=== PATIENT | female | born 1975 | race Caucasian/White ===

== ENCOUNTER 2017-07-30 06:14 | Day surgery (SDC) | payer BC ==
[2017-07-30] MEDS: BUPIVACAINE 0.25% (MPF) 30 ML INJ
[2017-07-30] MEDS: SODIUM CHLORIDE 0.9% 1L BAG IV
[2017-07-30] MEDS ORDERED: ONDANSETRON 4 MG INJ (07:00)
[2017-07-30] MEDS ORDERED: SUCCINYLCHOLINE CHLORIDE 100 MG/5 ML SYG IV (07:00)
[2017-07-30] MEDS ORDERED: SOD CHLORIDE 0.9% 1,000 ML IV (07:00)
[2017-07-30] MEDS ORDERED: CEFAZOLIN 2 GM/50 ML (PMX) 50 ML IVPB (07:00)
[2017-07-30] MEDS ORDERED: CLINDAMYCIN 900 MG/50 ML D5W IVPB IVPB (07:00)
[2017-07-30] MEDS ORDERED: ROCURONIUM 50 MG INJ (07:00)
[2017-07-30] MEDS ORDERED: DEXAMETHASONE 4 MG/ML 1 ML INJ (07:00)
[2017-07-30] MEDS ORDERED: FENTAnyl 50 MCG/ML VIAL (08:16)
[2017-07-30] MEDS ORDERED: MIDAZOLAM 1 MG/ML 2 ML INJ (08:16)
[2017-07-30] MEDS ORDERED: METOCLOPRAMIDE 10 MG INJ (08:17)
[2017-07-30 08:20] LABS: ADD MAN DIFF? NO
[2017-07-30] MEDS ORDERED: PROPOFOL 20 ML (08:20)
[2017-07-30] MEDS ORDERED: LIDOCAINE 100 MG SYRINGE (08:20)
[2017-07-30] MEDS ORDERED: CEFAZOLIN 1 GM INJ (08:20)
[2017-07-30 08:27] LABS: BASOPHIL # 0.1 10^3/ul (0.0-0.1); BASOPHILS % 0.8 % (0.0-2.0); EOSINOPHILS # 0.3 10^3/ul (0.0-0.5); EOSINOPHILS % 3.8 % (0.0-7.0); HEMOGLOBIN 8.6 g/dl (12.0-16.0); LYMPHOCYTES # 2.4 10^3/ul (0.8-2.9); LYMPHOCYTES % 26.8 % (15.0-51.0); MEAN CORPUSCULAR HGB CONC 29.7 g/dl (32.0-37.0); MEAN CORPUSCULAR VOLUME 77.5 fl (82.0-101.0); MONOCYTE # 0.8 10^3/ul (0.3-0.9); MONOCYTES % 9.6 % (0.0-11.0); NEUTROPHIL # 5.1 10^3/ul (1.6-7.5); NEUTROPHILS % 58.5 % (39.0-77.0); PLATELET COUNT 189 10^3/UL (140-415); RED BLOOD COUNT 3.74 10^6/ul (4.20-5.40); RED CELL DISTRIBUTION WIDTH 16.3 % (11.5-14.5)
[2017-07-30 08:27] LABS: WHITE BLOOD COUNT 8.8 10^3/ul (4.8-10.8)
[2017-07-30 08:28] LABS: HOLD TRANSMISSIONS 1
[2017-07-30] MEDS ORDERED: HYDROmorphONE (0.2 MG/ML) 10ML SYG IV ×3 (10:30)
[2017-07-30] MEDS ORDERED: ONDANSETRON 4 MG INJ IV (10:30)
[2017-07-30] MEDS ORDERED: hydrALAzine 20 MG INJ IV (10:30)
[2017-07-30] MEDS ORDERED: MEPERIDINE 25 MG INJ IV (10:30)
[2017-07-30] MEDS ORDERED: LABETALOL HCL 20MG INJ IV (10:30)
[2017-07-30] MEDS ORDERED: FENTAnyl 50 MCG/ML VIAL IV ×2 (10:30)
[2017-07-30] MEDS ORDERED: DIPHENHYDRAMINE 50 MG INJ IV (10:30)
[2017-07-30] MEDS: HYDROCODONE/APAP (5/325) TAB PO (11:16)
== END 2017-07-30 16:26 | disposition home or self-care (01) ==
LOC: SDS 06:14
DX: K80.10 Calculus of gallbladder with chronic cholecystitis without obstruction (principal); K76.9 Liver disease, unspecified; I10 Essential (primary) hypertension
CPT/HCPCS: 47379; 84703; 85025; 88304; 88307; 88313